=== PATIENT | male | born 1935 | race Caucasian/White ===

== ENCOUNTER 2017-12-25 09:20 | Outpatient (CLI) | payer MEDICARE, BC ==
--- NOTE | 2017-12-25 11:50 | RAD ---
CHEST TWO VIEWS: HISTORY: Dyspnea. COMPARISON: 10/06/2016 FINDINGS: Cardiac silhouette and pulmonary vasculature are unremarkable. Mediastinum is midline with aortic ca lcification. Coarse and interstitial markings are similar in appearance to the previous exam. No lo bar consolidation, pleural fluid, or pneumothorax are apparent. IMPRESSION: Interstitial fibrotic changes and other findings appear stable. POS: [facility]
== END 2017-12-25 09:21 | disposition home or self-care (01) ==
LOC: RAD 09:20
PROVIDERS: ATTEND Internal Medicine Critical Care Medicine
DX: R06.00 Dyspnea, unspecified (principal)
CPT/HCPCS: 71046

== ENCOUNTER 2018-08-28 08:06 | Outpatient (CLI) | payer MEDICARE, OTHER ==
--- NOTE | 2018-08-28 10:33 | RAD ---
PA AND LATERAL VIEWS OF CHEST: Date: 08/28/18 HISTORY: Dyspnea. FINDINGS: Comparison made with exam of 12/25/17. The heart size is stable. Chronic changes in the lung parenchyma again noted. No focal areas of conso lidation, pneumothoraces, or pleural effusions are identified. Bony structures are stable. IMPRESSION: Stable chronic changes. No acute process. POS: OFF
== END 2018-08-28 08:07 | disposition home or self-care (01) ==
LOC: RAD 08:06
PROVIDERS: ATTEND Internal Medicine Critical Care Medicine
DX: R06.00 Dyspnea, unspecified (principal)
CPT/HCPCS: 71046

== ENCOUNTER 2019-06-20 08:56 | Outpatient (CLI) | payer MEDICARE, OTHER ==
--- NOTE | 2019-06-20 09:33 | RAD ---
XR Chest Pa Lat @ POB History: Dyspnea Comparison: Radiograph August 2018 Findings: Abnormal interstitial markings in the lung bases are similar. There is a apical basilar gra dient. The heart size is enlarged. Pulmonary arteries are enlarged. No acute osseous abnormality. Impression: Findings of interstitial lung disease, pulmonary fibrosis.
== END 2019-06-20 08:57 | disposition home or self-care (01) ==
LOC: RAD 08:56
PROVIDERS: ATTEND Internal Medicine Critical Care Medicine
DX: R06.00 Dyspnea, unspecified (principal); J84.10 Pulmonary fibrosis, unspecified
CPT/HCPCS: 71046

== ENCOUNTER 2020-07-27 09:32 | Outpatient (CLI) | payer MEDICARE, OTHER ==
--- NOTE | 2020-07-27 09:48 | RAD ---
XR Chest Pa Lat STANDARD HISTORY: Dyspnea COMPARISON: 06/20/2019 FINDINGS: The heart size normal. The aorta is tortuous. Interval worsening of interstitial lung disea se is seen. No lobar consolidation, pneumothoraces or pleural effusions are identified. Findings may represent pulmonary fibrosis. IMPRESSION: Interval worsening since 06/20/2019.
== END 2020-07-27 09:33 | disposition home or self-care (01) ==
LOC: BICRAD 09:32
PROVIDERS: ATTEND Internal Medicine Critical Care Medicine
DX: R06.00 Dyspnea, unspecified (principal)
CPT/HCPCS: 71046

== ENCOUNTER 2021-07-08 12:21 | Outpatient (CLI) | payer MEDICARE, OTHER | END 2021-07-08 12:22 | disposition home or self-care (01) | LOC: BICRAD 12:21 | PROVIDERS: ATTEND Internal Medicine Critical Care Medicine | DX: R06.00 Dyspnea, unspecified (principal) | CPT/HCPCS: 71046 ==